=== PATIENT | female | born 1965 | race Caucasian/White ===

== ENCOUNTER 2016-11-17 09:39 | Emergency (ER) | payer OTHER ==
[~2016-11-17] VITALS: Ht 157.5 cm; Wt 99.8 kg
[~2016-11-17 09:39] MED LIST: HYDR-5688 PO; IBUP-103 PO; SERT25TA PO; SYN175 PO
[2016-11-17 09:41] VITALS: TEMP 36.5; Ht 157.5 cm; Wt 99.8 kg
[2016-11-17] MEDS ORDERED: XYLOCAINE 1%/SOD BICARB 20 ML VIAL INFIL ONE (10:00)
[2016-11-17] MEDS ORDERED: DIPHTHERIA/TETANUS/PERTUSSIS 0.5 ML SYR/VIAL IM. ONE (10:00)
--- NOTE | 2016-11-17 11:27 | EMERGENCY ROOM VISIT NOTE ---
ED Visit Note First contact with patient: 09:50 CHIEF COMPLAINT: [place] embedded in the right second finger 30 minutes Patient is a [id number] 51-year-old white female who presents to emergency department for evaluation of a fishing hook embedded in her right second finger that occurred roughly 30 minutes ago. She was trying to get the fish unsettled from the fishing line, when it moved on her, and she punctured the hook on the finger. She did not attempt to remove it. She rates her pain a 2/10. PMH: Electronic medical records are reviewed and summarized as above/below. See Problem List. She is unsure of her last tetanus. REVIEW OF SYSTEMS: Review of systems as per HPI. All other systems reviewed were negative. At least 6 systems reviewed. SOCIAL HISTORY: Patient lives at home. PHYSICAL EXAM: Vital Signs: Reviewed Nurse's notes. There is a fishhook embedded in the tip of the right second finger. It does not involve the nail of the nailbed. EMERGENCY DEPARTMENT COURSE: After Betadine cleansing and lidocaine anesthesia a small incision was made in the skin with a number 11 scalpel blade at the entrance point. Place was used to dissect down off of the sue, at which point the hook was easily loosened, and removed without difficulty. The area was then re-scrubbed with Betadine and bacitracin and a bandage applied. Tetanus was updated. She was encouraged to watch the area for signs of infection and return as needed. Problem List Medical Problems: (1) Depression Status: Chronic (2) Hypothyroidism, Unspecified Status: Chronic Surgical Problems: (1) History of arthroscopic knee surgery Status: Resolved Current/Historical Medications Scheduled Levothyroxine (Synthroid *), 0.175 MG PO QAM Sertraline (Zoloft), 25 MG PO QAM Allergies Coded Allergies: No Known Allergies (Verified , 11/17/16) Vital Signs Date Time Temp Pulse Resp B/P Pulse Ox O2 Delivery O2 Flow Rate FiO2 11/17/16 11:45 86 18 134/62 98 11/17/16 09:41 36.5 69 17 160/96 97 Room Air Medications Administered Medications (Trade) Dose Ordered Sig/Stella Route Start Time Stop Time Status Last Admin Dose Admin Diphtheria/ Pertussis/Tetanus Vacc (Adacel Inj) 0.5 ml ONCE ONCE IM. 11/17/16 10:00 11/17/16 10:01 DC 11/17/16 10:02 0.5 ML Departure Information Impression Primary Impression: Foreign body of finger of right hand Referrals Varsha Collins M.D. (PCP) Patient Instructions A Signature Page, On License Of [facility] Additional Instructions Clean wound daily, cover with an antibiotic ointment and keep covered until it heals. Return for any signs of infection (increasing redness, swelling, drainage). Ice and elevate for swelling and pain. Ibuprofen 600 mg and Tylenol 1000 mg every 6 hrs for pain.
[2016-11-17 11:45] VITALS: BP 134/62; PULSE 86; O2SAT 98
== END 2016-11-17 11:46 | disposition home or self-care (01) ==
LOC: C.EDB 09:40 → C.EDA 11:46
DX: S60.450A Superficial foreign body of right index finger, initial encounter (principal); W45.8XXA Other foreign body or object entering through skin, initial encounter; F32.9 Major depressive disorder, single episode, unspecified; E03.9 Hypothyroidism, unspecified; Z23 Encounter for immunization